=== PATIENT | male | born 1950 | race Caucasian/White ===

== ENCOUNTER 2023-05-01 12:45 | Emergency (ER) | payer OTHER ==
[~2023-05-01] VITALS: Ht 180.3 cm; Wt 108.0 kg
[~2023-05-01 12:45] MED LIST: ASPI81EC PO; CHOLESTROL MED
[2023-05-01 13:44] LABS: BASOPHILS ABSOLUTE AUTO 0.05 K/mm3 (0.00-0.23); BASOPHILS PERCENT AUTO 1 % (0-2); EOSINOPHILS ABSOLUTE AUTO 0.07 K/mm3 (0.00-0.68); EOSINOPHILS PERCENT AUTO 1 % (0-6); Hematocrit 49.6 % (37.0-53.0); Hemoglobin 17.1 g/dL (13.5-17.5); IMMATURE GRAN ABSOLUTE AUTO 0.04 K/mm3 (0.00-0.10); IMMATURE GRAN PERCENT AUTO 1 % (0-1); LYMPHOCYTES ABSOLUTE AUTO 1.78 K/mm3 (0.84-5.20); LYMPHOCYTES PERCENT AUTO 24 % (21-46); MONOCYTES ABSOLUTE AUTO 0.46 K/mm3 (0.16-1.47); MONOCYTES PERCENT AUTO 6 % (4-13); Mean Corpuscular HGB 32.9 pg (26.0-34.0); Mean Corpuscular HGB Conc 34.5 g/dL (31.5-36.5); Mean Corpuscular Volume 95 fL (80-100); Mean Platelet Volume 11.1 fL (9.1-12.4); NEUTROPHILS ABSOLUTE AUTO 4.98 K/mm3 (1.96-9.15); NEUTROPHILS PERCENT AUTO 68 % (41-73); Platelet Count 141 K/mm3 (150-400); RDW Coefficient Variation 14.4 % (11.7-14.2); White Blood Cell Count 7.38 K/mm3 (4.00-11.30)
[2023-05-01 14:00] LABS: Albumin, Blood 3.6 g/dL (3.4-5.0); Albumin/Globulin Ratio 1.1 (0.8-1.8); Bilirubin, Total 0.6 mg/dL (0.1-1.0); Calcium, Blood 9.3 mg/dL (8.5-10.1); Creatinine, Blood 0.85 mg/dL (0.60-1.20); Globulin, Blood 3.3 g/dL (2.2-4.0); Potassium, Blood 3.9 mmol/L (3.5-5.5); Total Protein, Blood 6.9 g/dL (6.4-8.2)
[2023-05-01 14:48] VITALS: BP 118/85
[2023-05-01] MEDS ORDERED: Amoxicillin875 MG PO (15:14)
== END 2023-05-01 15:22 | disposition home or self-care (01) ==
LOC: ER 12:45
PROVIDERS: Physician Assistant
DX: R04.2 Hemoptysis (principal); I25.2 Old myocardial infarction; Z88.8 Allergy status to other drugs, medicaments and biological substances; Z91.018 Allergy to other foods; Z79.82 Long term (current) use of aspirin
CPT/HCPCS: 71046; 80053; 85025; 99283-25; A9270

== ENCOUNTER 2024-07-24 07:28 | Day surgery (SDC) | payer OTHER ==
[2024-07-24] VITALS (8 sets, daily range): BP systolic 104–131; BP diastolic 77–90
[~2024-07-24] VITALS: Ht 177.8 cm; Wt 93.9 kg
[~2024-07-24 07:28] MED LIST changes: +ALBU2.5V5 INH; +ALBU90OI INH; +ATOR80 PO; +Amoxicillin875 MG PO; +CAVERJECT20 MCG IC; +CLOP75 PO; +FINA5 PO; +GABA300 PO; +Heparin Sodium 1000 Units/ML 10ML MDV ONE; +METO25ER PO; +MOMETASONE; +NS 1,000 ML IV ONE; +NS 250 ML IV ONE; +Nitroglycerin 2 MG/20 ML BTL ONE; +TAMS.4ER PO; +TIOT18; +Verapamil HCL 2.5 MG/ML 2ML Injection ONE; +ZADITOR5 M1
[2024-07-24] MEDS ORDERED: FentaNYL Citrate 50 MCG/ML 2 ML Injection ONE (08:44)
[2024-07-24] MEDS ORDERED: Midazolam HCl 1MG / ML 2ML Vial ONE (08:44)
[2024-07-24] MEDS ORDERED: NS 1,000 ML IV ONE (08:45)
--- NOTE | 2024-07-24 09:45 | NUR ---
Pt arrives back from lab, alert and oriented up in recliner. pt. vss upon arrival to unit. no interventions at this time. 10cc in TR band to Right radial site. Site wnl, no hematoma, no oozing.
--- NOTE | 2024-07-24 10:45 | NUR ---
PT TR BAND DEFLATION INTIATED. SITE WNL, NO OOZING NO HEMATOMA AT THIS TIME. VSS. SNACKS PROVIDED.
[2024-07-24] MEDS ORDERED: Isosorbide Mono30 MG PO (10:51)
--- NOTE | 2024-07-24 11:45 | NUR ---
TR BAND FULLY DEFLATED WITH OUT COMPLICATION. SITE REMAINS WNL. IV REMOVED CATHETER INTACT. PT ABLE TO GET SELF DRESSED W/O DIFFICULTY. DISCHARGE INSTRUCTIONS REVIEWED IN DETAIL. PT. VSS REMAIN STABLE. CALL TO PT RIDE AND LMOM. PT NEW PRESCRIPTION FAXED TO [facility] PER PT REQUEST. NOTE ON PRESCRIPTION FOR PT TO SPAR CAP BEVELER.
--- NOTE | 2024-07-24 12:24 | NUR ---
PT DISCHARGE INSTRUCTIONS REVIEWED IN DETAIL. TR BAND REMOVED AND BANDAGE PLACED. NO OOZING OR SWELLING TO RADIAL SITE. PT.V SS REMIANS STABLE. PT. TRANSPORT CALLED AND RIDE ARRANGED. PT. DISCHARGED WITH ARMBOARD IN PLACE. VOLUNTEER TO WHEEL PT TO EXIT.
== END 2024-07-24 12:30 | disposition home or self-care (01) ==
LOC: MHTC 07:28
DX: I25.10 Atherosclerotic heart disease of native coronary artery without angina pectoris (principal); I25.82 Chronic total occlusion of coronary artery; I25.2 Old myocardial infarction; I25.5 Ischemic cardiomyopathy; I11.0 Hypertensive heart disease with heart failure; I50.30 Unspecified diastolic (congestive) heart failure; E78.5 Hyperlipidemia, unspecified; J44.9 Chronic obstructive pulmonary disease, unspecified; I71.40 Abdominal aortic aneurysm, without rupture, unspecified; B18.2 Chronic viral hepatitis C; F17.200 Nicotine dependence, unspecified, uncomplicated; Z79.02 Long term (current) use of antithrombotics/antiplatelets; Z79.82 Long term (current) use of aspirin; Z79.899 Other long term (current) drug therapy; Z91.018 Allergy to other foods; Z88.8 Allergy status to other drugs, medicaments and biological substances; Z95.5 Presence of coronary angioplasty implant and graft
CPT/HCPCS: 76937; 93458; 93571; 99152; 99153; C1769; C1887; C1894; J1644; J2250; J3010; J7030; J7050; Q9967